=== PATIENT | female | born 1985 | race Caucasian/White ===

== ENCOUNTER 2016-08-06 08:42 | Inpatient (IN) | payer OTHER ==
[~2016-08-06] VITALS: Ht 157.5 cm; Wt 68.1 kg
[2016-08-06 09:20] LABS: CALCIUM 9.2 mg/dL (8.5-10.1); CARBON DIOXIDE 25.4 mmol/L (21-32); CHLORIDE SERUM 105 mmol/L (98-107); CREATININE SERUM 0.8 mg/dL (0.6-1.0); GFR1 > 60 mL/min; GLUCOSE SERUM 102 mg/dL (74-106); POTASSIUM SERUM 3.4 mmol/L (3.5-5.1); SODIUM SERUM 140 mmol/L (136-145)
[2016-08-06 09:25] LABS: BASOPHIL % 0.6 % (0-2); PLATELET COUNT 247 x10^3mcL (130-400); RED CELL DISTRIBUTION WIDTH 12.9 % (11.5-14.5)
[2016-08-06 09:33] LABS: ALBUMIN 4.2 g/dL (3.4-5.0); ALKALINE PHOSPHATASE 71 U/L (46-116); ALT/SGPT 26 U/L (14-59); AST/SGOT 15 U/L (15-37); BILIRUBIN TOTAL 0.54 mg/dL (0.20-1.00); T4(THYROXINE) 13.3 ug/dL (4.7-13.3); TOTAL PROTEIN, SERUM 7.8 g/dL (6.4-8.2)
[2016-08-06 09:34] LABS: AMPHETAMINE QUAL UR NONE DETECTED (NEG <=1000)
[2016-08-06] MEDS ORDERED: NUVARING1 ICR VG (10:26)
[2016-08-06 11:12] LABS: T3 TOTAL 1.16 ng/mL
[2016-08-06 11:25] VITALS: BP 126/75
[2016-08-06 11:26] LABS: FREE THYROXINE INDEX 3.6 ug/dL (1.4-4.5)
[2016-08-06 11:35] LABS: CHOLESTEROL/HDL RATIO 2.2
[2016-08-06 11:36] LABS: FREE T4 1.28 ng/dL (0.76-1.46)
[2016-08-06 13:22] LABS: microscopic required? YES; urine erythrocyte TRACE (NEGATIVE)
[2016-08-06 17:53] VITALS: BP 117/69
[2016-08-06 21:54] VITALS: BP 117/74
[2016-08-07 06:04] VITALS: BP 122/69
[2016-08-07 06:18] LABS: BASOPHIL % 0.9 % (0-2); PLATELET COUNT 194 x10^3mcL (130-400); RED CELL DISTRIBUTION WIDTH 13.1 % (11.5-14.5)
[2016-08-07 06:48] LABS: CALCIUM 8.1 mg/dL (8.5-10.1); CARBON DIOXIDE 22.7 mmol/L (21-32); CHLORIDE SERUM 111 mmol/L (98-107); CREATININE SERUM 0.8 mg/dL (0.6-1.0); GFR1 > 60 mL/min; GLUCOSE SERUM 93 mg/dL (74-106); POTASSIUM SERUM 4.3 mmol/L (3.5-5.1); SODIUM SERUM 144 mmol/L (136-145)
[2016-08-07 09:44] VITALS: BP 122/69
[2016-08-07 09:46] VITALS: BP 111/65
[2016-08-07] MEDS ORDERED: ATIVAN0.5 M1 PO (14:01)
[2016-08-07] MEDS ORDERED: OMEPRAZOLE40 M1 PO (14:12)
[2016-08-07] MEDS ORDERED: LAC PO (14:12)
[2016-08-07] MEDS ORDERED: CIPRO250 MG PO (14:12)
== END 2016-08-07 14:44 | disposition home or self-care (01) | DRG 243 ==
LOC: ED 08:42 → DU 10:13
PROVIDERS: Emergency Medicine; Family Medicine; ADMIT Family Medicine
DX: K21.9 Gastro-esophageal reflux disease without esophagitis (principal); N39.0 Urinary tract infection, site not specified; E87.8 Other disorders of electrolyte and fluid balance, not elsewhere classified; E87.6 Hypokalemia; E02 Subclinical iodine-deficiency hypothyroidism
CPT/HCPCS: 80307; 83880; 84439; 85378; J0696; J2060; J7030; Q0092